=== PATIENT | male | born 1980 | race Two or more races ===

== ENCOUNTER 2019-02-16 13:41 | Emergency (ER) | payer OTHER ==
[~2019-02-16] VITALS: Ht 170.2 cm; Wt 59.9 kg
[2019-02-16] MEDS ORDERED: Morphine Sulfate 2mg/ml Inj(IV/IM USE ONLY) IVP ONE (14:00)
[2019-02-16] MEDS ORDERED: Omnipaque-300 100ml vial INJ PRN (14:00)
[2019-02-16 14:20] LABS: APPEARANCE,URINE CLEAR; BILIRUBIN, URINE NEGATIVE (NEGATIVE); GLUCOSE, URINE (UA) NEGATIVE (NEGATIVE); KETONES,URINE 1+ (NEGATIVE); LEUKOCYTE ESTERASE ,URINE 1+ (NEGATIVE); NITRITE,URINE NEGATIVE (NEGATIVE); PH,URINE 5 (4.5-8.0); PROTEIN,URINE 1+ (NEGATIVE); UROBILINOGEN,URINE NORMAL MG/DL (0.0-1.0)
[2019-02-16 14:20] LABS: BASOPHILS % (AUTO) 0.7 % (0.0-2.0); EOSINOPHILS % (AUTO) 0.1 % (0.0-3.0); HEMATOCRIT 47.8 % (42.0-52.0); HEMOGLOBIN 17.2 G/DL (14.2-18.0); MEAN CORPUSCULAR VOLUME 100 FL (80-99); MONOCYTES % (AUTO) 4.2 % (1.0-10.0); PLATELET COUNT 399 K/UL (150-450); RED CELL DISTRIBUTION WIDTH 10.7 % (11.6-14.8); WHITE BLOOD COUNT 8.7 K/UL (4.8-10.8)
--- NOTE | 2019-02-16 14:23 | NUR ---
ED Nurse Note: Pt came in from home with partner due to R sided abdominal pain/ R flank pain x " weeks" but got worse today and constipation. Last bowel movement was yesterday, described as small. AOOx4, HR 119 upon arrival, NILE Lowery aware. Pain 8/10 at this time. Pt has hx of "passing kidney stones" in the past. Pt ambulatory, able to make needs known. NAD. Will cont to monitor.
[2019-02-16 14:27] LABS: ANION GAP 10 mmol/L (5-15); BLOOD UREA NITROGEN 4 mg/dL (7-18); CALCIUM 9.2 MG/DL (8.5-10.1); CARBON DIOXIDE 27 MMOL/L (21-32); CHLORIDE 104 MMOL/L (98-107); CREATININE 1.1 MG/DL (0.55-1.30); POTASSIUM 3.7 MMOL/L (3.5-5.1); SODIUM 141 MMOL/L (136-145)
[2019-02-16 14:30] LABS: COLOR,URINE YELLOW
[2019-02-16 14:32] LABS: ALANINE AMINOTRANSFERASE 27 U/L (12-78); ALBUMIN 4.3 G/DL (3.4-5.0); ALKALINE PHOSPHATASE 78 U/L (46-116); ASPARTATE AMINO TRANSFERASE 26 U/L (15-37); BILIRUBIN,TOTAL 0.3 MG/DL (0.2-1.0)
--- NOTE | 2019-02-16 14:47 | NUR ---
ED Nurse Note: Pt to CT scan via wheelchair. NO sign of acute distress.
[2019-02-16] MEDS ORDERED: Ketorolac 30mg Inj IV ONE (15:15)
--- NOTE | 2019-02-16 15:34 | NUR ---
ER Nurse Note: Pt stable, no signs of distress, RA. Pt back from CT; awaiting results. Pt stated pain; PA aware and awaiting orders for toradol. All orders completed per ER PA orders. NS infusing in LT AC 20 gauge; patent. All safety measures met; will continue to montior.
--- NOTE | 2019-02-16 15:36 | Diagnostic Imaging Report ---
Indication: Abdominal pain Technique: Continuous helical transaxial imaging of the abdomen and pelvis was obtained from the lung bases to the pubic symphysis during intravenous contrast administration. Coronal 2-D reformats were also obtained. Study obtained in a Siemens sensation [address] Automatic Exposure Control was utilized. Total Dose length Product (DLP): 584.[address] Dose Index Volume (CTDIvol): 9.7 mGy Comparison: None Findings: The lung bases are clear. The gallbladder, liver and spleen, pancreas, kidneys and adrenal glands show no abnormalities. The appendix is normal. Bowel gas pattern is nonobstructive. Urinary bladder is unremarkable. There is no free fluid or free air. Osseous structures are unremarkable IMPRESSION: No acute findings [facility] has communicated the preliminary results to the Emergency Department. Their findings are largely concordant with this report. The CT scanner at [facility] is accredited by the [employer] and the scans are performed using dose optimization techniques as appropriate to a performed exam including Automatic Exposure control.
--- NOTE | 2019-02-16 15:39 | Emergency Room Report ---
History of Present Illness General Chief Complaint: Abdominal Pain Source: Patient (Sebastián Hatch) Present Illness HPI 38-year-old male with no significant past medical history here complaining of 2 weeks of right-sided flank pain with history of renal stone now radiating to right lower abdominal quadrant. Complains of 1 bouts of vomiting and feeling nauseated. Denies fever and chills, urinary frequency and urgency. Denies hematuria. Denies diarrhea, constipation. Denies blood in vomit or in stool. Denies fever and chills, chest pain, shortness of breath, palpitation, recent travel, no other associated symptoms. Patient is rating pain 10 out of 10 with radiation, has not taken medication for pain. (Sebastián Hatch) Allergies: Coded Allergies: LATEX (Verified Allergy, Unknown, 02/16/19) Patient History Past Medical History: see triage record Past Surgical History: unable to obtain Pertinent Family History: none Immunizations: UTD Reviewed Nursing Documentation: PMH: Agreed; PSxH: Agreed (Sebastián Hatch) Nursing Documentation-PMH Past Medical History: No History, Except For (Sebastián Hatch) Review of Systems All Other Systems: negative except mentioned in HPI (Sebastián Hatch) Physical Exam Vital Signs Date Time Temp Pulse Resp B/P (MAP) Pulse Ox O2 Delivery O2 Flow Rate FiO2 02/16/19 13:47 98.2 119 19 114/76 (89) 100 Room Air Sp02 EP Interpretation: reviewed, abnormal - Elevated heart rate General Appearance: no apparent distress, alert, GCS 15, non-toxic Head: normocephalic, atraumatic Eyes: bilateral eye normal inspection, bilateral eye PERRL ENT: hearing grossly normal, normal pharynx, no angioedema, normal voice Neck: full range of motion, supple, supple/symm/no masses Respiratory: chest non-tender, lungs clear, normal breath sounds, no rhonchi, no wheezing, speaking full sentences Cardiovascular #1: regular rate, rhythm, no edema, no murmur, normal capillary refill, tachycardia Cardiovascular #2: 2+ radial (R), 2+ radial (L) Gastrointestinal: normal bowel sounds, non tender, soft, non-distended, no rebound, guarding - Right flank and right lower quadrant Rectal: deferred Genitourinary: no CVA tenderness Musculoskeletal: back normal, gait/station normal, normal range of motion, non- tender, no calf tenderness Neurologic: alert, oriented x3, responsive, motor strength/tone normal, sensory intact, speech normal Psychiatric: judgement/insight normal, memory normal, mood/affect normal, no suicidal/homicidal ideation Skin: no rash Lymphatic: no adenopathy (Sebastián Hatch) Medical Decision Making PA Attestation All diagnoses and treatment plans were reviewed and discussed with my supervising physician Dr. Benjamin (Sebastián Hatch) Diagnostic Impression: Primary Impression: Gastroenteritis Additional Impressions: Nausea & vomiting Lumbar sprain ER Course 38-year-old male with no significant past medical history here complaining of 2 weeks of right-sided flank pain with history of renal stone now radiating to right lower abdominal quadrant. Complains of 1 bouts of vomiting and feeling nauseated. Denies fever and chills, urinary frequency and urgency. Denies hematuria. Denies diarrhea, constipation. Denies blood in vomit or in stool. Denies fever and chills, chest pain, shortness of breath, palpitation, recent travel, no other associated symptoms. Patient is rating pain 10 out of 10 with radiation, has not taken medication for pain. Ddx considered but are not limited to: appendicitis, cholecystis, gastritis, gastroenteritis, UTI, pyelonephritis, SBO, diverticulitis, influenza with GI manifestation, renal stone Vital signs: are WNL, pt. is afebrile H&PE are most consistent with: Gastroenteritis, lumbar sprain, nausea vomiting ORDERS: abdominal CT, abdominal pain set, EKG, Zofran, Tylenol ED INTERVENTIONS: NS bolus, morphine, Toradol, Zofran, DISCHARGE: At this time pt. is stable for d/c to home. Will provide printed patient care instructions, and any necessary prescriptions. Care plan and follow up instructions have been discussed with the patient prior to discharge. Patient to follow-up with primary care provider for further evaluation of possible renal stones as a consideration is not acute and patient to see urologist. CT scan showed no renal stone however to be repeated by urologist without contrast. Patient agrees. Since patient reports that he recently consume alcohol. Symptoms can be secondary to alcohol intake. Also return to the emergency room with worsening symptoms. (Sebastián Hatch) EKG Diagnostic Results Rate: tachycardiac Rhythm: other - Tachycardic ST Segments: no acute changes Other Impression No acute ST changes (Sebastián Hatch) Chest X-Ray Diagnostic Results Chest X-Ray Diagnostic Results : Chest X-Ray Ordered: Yes # of Views/Limited/Complete: 1 View Indication: Other EP Interpretation: Yes PA Xray: Interpretation reviewed, by supervising MD, and agrees with findings. Interpretation: no consolidation, no effusion, no pneumothorax Impression: No acute disease Electronically Signed by: Sebastián Mercado PA-C (Sebastián Hatch) Chest X-Ray Diagnostic Results : Electronically Signed by: Kwame Garay documentation of Xray reviewed by me and is accurate, Juan Benjamin MD (Juan Benjamin MD) CT/MRI/US Diagnostic Results CT/MRI/US Diagnostic Results : Imaging Test Ordered: CT abdomen pelvis with contrast Impression CT ABDOMEN & PELVIS With Contrast: Unremarkable appendix. No colitis Nonobstructive bowel gas pattern. Small hiatal hernia. No radiodense gallstones or pancreatitis. Kidneys are unremarkable. (Sebastián Hatch) Last Vital Signs Date Time Temp Pulse Resp B/P (MAP) Pulse Ox O2 Delivery O2 Flow Rate FiO2 02/16/19 14:49 98.2 02/16/19 14:26 119 19 Room Air 02/16/19 13:47 114/76 (89) 100 (Sebastián Hatch) Disposition: HOME, SELF-CARE Condition: Stable Scripts Acetaminophen* (ACETAMINOPHEN 325MG TABLET*) 325 Mg Tablet 650 MG ORAL Q6H PRN for For Pain, #30 TAB Prov: Sebastián Hatch 02/16/19 Lidocaine Patch* (Lidoderm Patch*) 1 Each Adh..patch 1 PATCH TOPIC DAILY, #7 PATCH 0 Refills Patch(es) may remain in place for up to 12 hours in any 24-hour period. Prov: Sebastián Hatch 02/16/19 Ondansetron (Zofran) 4 Mg Tablet 4 MG ORAL Q6H PRN for Nausea & Vomiting, #10 TAB Prov: Sebastián Hatch 02/16/19 Referrals: NOT CHOSEN IPA/,REFERRING (PCP) Patient Instructions: Abdominal Pain, Adult, Lumbosacral Strain, Nausea and Vomiting, Adult, [id number] Additional Instructions: Take medication as directed, follow-up with your primary care provider. If worsening symptoms return to the emergency room Sebastián Hatch Feb 16, 2019 15:39 Juan Benjamin MD Feb 18, 2019 00:40
[2019-02-16] MEDS ORDERED: ACETAMINOPHEN325 M1 ORAL (15:41)
[2019-02-16] MEDS ORDERED: ZOFRAN4 M1 ORAL (15:41)
[2019-02-16] MEDS ORDERED: LIDODERM700 M1 TOPIC (15:41)
[2019-02-16 15:46] VITALS: BP 109/74
[2019-02-16 15:55] VITALS: BP 109/74
--- NOTE | 2019-02-16 15:55 | NUR ---
ER Nurse Note: Pt seen, treated, medically cleared for discharge by ERMD. Discharge instuctions and prescriptions given with repeat verbalization by pt. Emphasized to follow up with primay care provider. All orders completed per ERMD orders. Pt a&ox4, VSS, no signs of distress; pt ambulatory with steady gait. ID band removed. IV removed; site clean and bandaged. All questions answered per pt's questions. Pt left with all belongings, left with own transportation.
--- NOTE | 2019-02-17 13:18 | Diagnostic Imaging Report ---
Indication: Chest pain Comparison: None A single view chest radiograph was obtained. Findings: Cardiomediastinal appearance is within normal limits for age. The lungs are clear. Pulmonary vascularity is appropriate. The diaphragmatic contour is smooth and costophrenic angles are sharp. No pleural effusions are identified. The bones are unremarkable. Impression: No acute findings
--- NOTE | 2019-02-18 07:27 | Cardiology Report ---
APPROVED REPORT EKG Measurement Heart [id number] Sinus tachycardia Otherwise normal ECG
== END 2019-02-16 15:55 | disposition home or self-care (01) ==
LOC: EMR 14:35
DX: K52.9 Noninfective gastroenteritis and colitis, unspecified (principal); S33.5XXA Sprain of ligaments of lumbar spine, initial encounter; Z91.040 Latex allergy status; R11.2 Nausea with vomiting, unspecified; Z87.442 Personal history of urinary calculi; X58.XXXA Exposure to other specified factors, initial encounter; Y92.9 Unspecified place or not applicable
CPT/HCPCS: 36415; 71045; 74177; 80053; 80307; 81003; 83690; 85025; 85610; 85730; 86850; 86900; 86901; 93005; 96361; 96374; 96375; 99284; J1885; J2270; J2405; Q9967; J7030